=== PATIENT | male | born 1985 | race Caucasian/White ===

== ENCOUNTER 2019-09-14 22:39 | Emergency (ER) | payer SELFPAY ==
[~2019-09-14] VITALS: Ht 170.2 cm; Wt 128.0 kg
[~2019-09-14 22:39] MED LIST: NOCURR
[2019-09-15 02:22] VITALS: BP 129/69
[2019-09-15 02:37] LABS: INFLUENZA TYPE A NEGATIVE FOR TYPE A (NEGATIVE); INFLUENZA TYPE B NEGATIVE FOR TYPE B (NEGATIVE)
== END 2019-09-15 03:14 | disposition home or self-care (01) ==
LOC: EMS 22:44
DX: J06.9 Acute upper respiratory infection, unspecified (principal)
CPT/HCPCS: 87804